=== PATIENT | male | born 1995 | race Caucasian/White ===

== ENCOUNTER → 2018-12-10 17:10 | Outpatient (CLI) | payer OTHER, SELFPAY ==
[2018-12-10 16:57] VITALS: BMI 26.3
[2018-12-11 01:10] LABS: Absolute Lymphocyte Count 1.85 X10^3/uL (0.83-4.51); Absolute Neutrophil Count 7.5 X10^3/uL (2.0-7.7); Basophil# 0.04 X10^3/uL; Basophil% 0.4 % (0-1); Eosinophil# 0.07 X10^3/uL; Eosinophils% 0.7 % (0-5); Hematocrit 45.6 % (40-54); Hemoglobin 15.4 g/dL (13.0-16.5); Lymphocyte # 1.85 X10^3/ul (4.0); Lymphocyte % 18.4 % (19-41); Mean Corp Hgb Conc 33.8 g/dL (32-36); Mean Corpuscular Hgb 30.6 pg (27.0-32.0); Mean Corpuscular Volume 90.7 fL (80-94); Mean Platelet Vol. 11.8 fl (6.2-12.0); Monocyte# 0.63 X10^3/uL; Monocyte% 6.3 % (0-10); NRBC Flagged by Analyzer 0 % (0-5); Neutrophil # 7.46 X10^3/uL (2.7-7.7); Neutrophil % 74.1 % (47-70); Platelet Count 180 K/mm3 (150-450); RBC Distribution Width CV 12.2 % (11.6-14.6); RBC Distribution Width SD 40.6 fl (35.1-43.9); Red Blood Count 5.03 M/mm3 (4.6-6.2); White Blood Count 10.1 K/mm3 (4.4-11.0)
[2018-12-11 01:29] LABS: ALB/GLOB Ratio 1.2 RATIO (0.9-2.4); AST(SGOT) 14 U/L (15-37); Alanine Aminotransfer ALT/SGPT 22 U/L (16-61); Albumin, Serum 4.5 g/dL (3.2-5.0); Alkaline Phosphatase 120 U/L (45-117); Anion Gap 5 (5-15); BUN 15 mg/dL (7-18); BUN/Creat Ratio 13.2 RATIO (10-20); Calcium,Total 9.3 mg/dL (8.5-10.1); Chloride 105 mmol/L (98-107); Cholesterol 192 mg/dL (200); Creatinine, Serum 1.14 mg/dL (0.70-1.30); EST Glomerular Filtration Rate 85 mL/min (>60); Est Glom Filt Rate - Afr Amer 103 mL/min (>60); Globulin 3.7 g/dL (2.2-4.2); Glucose 134 mg/dL (74-106); High Density Lipoprotein 61 mg/dL; Potassium 4.1 mmol/L (3.5-5.1); Protein, Total 8.2 g/dL (6.4-8.2); Sodium Level 137 mmol/L (136-145); Triglycerides 175 mg/dL; Very Low Density Lipoprotein 35 mg/dL (5-40)
== END ==
PROVIDERS: Referring Provider Nurse Practitioner; Visit Provider Nurse Practitioner
DX: Z00.00 Encounter for general adult medical examination without abnormal findings (principal)
CPT/HCPCS: 80053; 80061; 85025

== ENCOUNTER → 2019-12-11 21:38 | Outpatient (CLI) | payer OTHER, SELFPAY ==
[2019-12-10 15:44] VITALS: BMI 27.1
[2019-12-11 21:46] LABS: Absolute Lymphocyte Count 2.31 X10^3/uL (0.83-4.51); Basophil# 0.03 X10^3/uL; Basophil% 0.4 % (0-1); Eosinophil# 0.24 X10^3/uL; Eosinophils% 2.9 % (0-5); Hematocrit 43.2 % (40-54); Hemoglobin 14.6 g/dL (13.0-16.5); Lymphocyte # 2.31 X10^3/ul (4.0); Lymphocyte % 27.9 % (19-41); Mean Corp Hgb Conc 33.8 g/dL (32-36); Mean Corpuscular Hgb 30.7 pg (27.0-32.0); Mean Corpuscular Volume 90.8 fL (80-94); Mean Platelet Vol. 11.5 fl (6.2-12.0); Monocyte# 0.65 X10^3/uL; Monocyte% 7.9 % (0-10); NRBC Flagged by Analyzer 0 % (0-5); Neutrophil # 5.03 X10^3/uL (2.7-7.7); Neutrophil % 60.7 % (47-70); Platelet Count 188 K/mm3 (150-450); RBC Distribution Width CV 12.6 % (11.6-14.6); RBC Distribution Width SD 41.6 fl (35.1-43.9); Red Blood Count 4.76 M/mm3 (4.6-6.2); White Blood Count 8.3 K/mm3 (4.4-11.0)
[2019-12-11 23:08] LABS: ALB/GLOB Ratio 1.3 RATIO (0.9-2.4); AST(SGOT) 22 U/L (15-37); Alanine Aminotransfer ALT/SGPT 32 U/L (16-61); Albumin, Serum 4.5 g/dL (3.2-5.0); Alkaline Phosphatase 95 U/L (45-117); Anion Gap 6 (5-15); BUN 16 mg/dL (7-18); BUN/Creat Ratio 15.5 RATIO (10-20); Calcium,Total 9.2 mg/dL (8.5-10.1); Chloride 107 mmol/L (98-107); Cholesterol 193 mg/dL (200); Creatinine, Serum 1.03 mg/dL (0.70-1.30); EST Glomerular Filtration Rate 95 mL/min (>60); Est Glom Filt Rate - Afr Amer 115 mL/min (>60); Globulin 3.5 g/dL (2.2-4.2); Glucose 94 mg/dL (74-106); High Density Lipoprotein 68 mg/dL; Potassium 4.2 mmol/L (3.5-5.1); Sodium Level 139 mmol/L (136-145); Triglycerides 60 mg/dL; Very Low Density Lipoprotein 12 mg/dL (5-40)
== END ==
LOC: OLS.AHF 21:39 → LABSPEC 12-14 10:24
PROVIDERS: PCP Nurse Practitioner; Visit Provider Nurse Practitioner
DX: Z00.00 Encounter for general adult medical examination without abnormal findings (principal)
CPT/HCPCS: 80053; 80061; 85025

== ENCOUNTER → 2020-12-09 21:26 | Outpatient (CLI) | payer OTHER, SELFPAY ==
[2020-12-09 22:06] LABS: ALB/GLOB Ratio 1.3 RATIO (0.9-2.4); AST(SGOT) 16 U/L (15-37); Alanine Aminotransfer ALT/SGPT 31 U/L (16-61); Albumin, Serum 4.6 g/dL (3.2-5.0); Alkaline Phosphatase 86 U/L (45-117); Anion Gap 6 (5-15); BUN 13 mg/dL (7-18); Calcium,Total 9.4 mg/dL (8.5-10.1); Chloride 104 mmol/L (98-107); Cholesterol 214 mg/dL (200); EST Glomerular Filtration Rate 98 mL/min (>60); Est Glom Filt Rate - Afr Amer 118 mL/min (>60); Globulin 3.5 g/dL (2.2-4.2); Glucose 95 mg/dL (74-106); High Density Lipoprotein 70 mg/dL; Potassium 4.3 mmol/L (3.5-5.1); Protein, Total 8.1 g/dL (6.4-8.2); Sodium Level 137 mmol/L (136-145); Triglycerides 87 mg/dL; Very Low Density Lipoprotein 17 mg/dL (5-40)
[2020-12-09 22:13] LABS: Absolute Lymphocyte Count 2.09 X10^3/uL (0.83-4.51); Absolute Neutrophil Count 5.9 X10^3/uL (2.0-7.7); Basophil# 0.04 X10^3/uL; Basophil% 0.5 % (0-1); Eosinophil# 0.13 X10^3/uL; Eosinophils% 1.5 % (0-5); Hematocrit 43.2 % (40-54); Hemoglobin 14.6 g/dL (13.0-16.5); Lymphocyte # 2.09 X10^3/ul (0.83-4.51); Lymphocyte % 23.9 % (19-41); Mean Corp Hgb Conc 33.8 g/dL (32-36); Mean Corpuscular Hgb 30.2 pg (27.0-32.0); Mean Corpuscular Volume 89.3 fL (80-94); Mean Platelet Vol. 11.5 fl (6.2-12.0); Monocyte# 0.63 X10^3/uL; Monocyte% 7.2 % (0-10); NRBC Flagged by Analyzer 0 % (0-5); Neutrophil # 5.85 X10^3/uL (2.7-7.7); Neutrophil % 66.7 % (47-70); Platelet Count 181 K/mm3 (150-450); RBC Distribution Width CV 12.4 % (11.6-14.6); RBC Distribution Width SD 40.9 fl (35.1-43.9); Red Blood Count 4.84 M/mm3 (4.6-6.2); White Blood Count 8.8 K/mm3 (4.4-11.0)
== END ==
PROVIDERS: PCP Nurse Practitioner; Visit Provider Nurse Practitioner
DX: Z00.00 Encounter for general adult medical examination without abnormal findings (principal)
CPT/HCPCS: 80053; 80061; 85025

== ENCOUNTER → 2022-01-11 | Outpatient (CLI) | payer OTHER, SELFPAY ==
[2022-01-11 22:15] LABS: Absolute Lymphocyte Count 2.15 X10^3/uL (0.83-4.51); Absolute Neutrophil Count 5.9 X10^3/uL (2.0-7.7); Basophil# 0.03 X10^3/uL; Basophil% 0.3 % (0-1); Eosinophil# 0.18 X10^3/uL; Hematocrit 41.4 % (40-54); Hemoglobin 14.4 g/dL (13.0-16.5); Lymphocyte # 2.15 X10^3/ul (0.83-4.51); Lymphocyte % 24.1 % (19-41); Mean Corp Hgb Conc 34.8 g/dL (32-36); Mean Corpuscular Hgb 31.8 pg (27.0-32.0); Mean Corpuscular Volume 91.4 fL (80-94); Mean Platelet Vol. 11.8 fl (6.2-12.0); Monocyte# 0.63 X10^3/uL; Monocyte% 7.1 % (0-10); NRBC Flagged by Analyzer 0 % (0-5); Neutrophil # 5.89 X10^3/uL (2.7-7.7); Neutrophil % 66.1 % (47-70); Platelet Count 185 K/mm3 (150-450); RBC Distribution Width CV 12.5 % (11.6-14.6); RBC Distribution Width SD 41.7 fl (35.1-43.9); Red Blood Count 4.53 M/mm3 (4.6-6.2); White Blood Count 8.9 K/mm3 (4.4-11.0)
[2022-01-11 22:28] LABS: ALB/GLOB Ratio 1.2 RATIO (0.9-2.4); AST(SGOT) 30 U/L (15-37); Alanine Aminotransfer ALT/SGPT 56 U/L (16-61); Albumin, Serum 4.1 g/dL (3.2-5.0); Alkaline Phosphatase 83 U/L (45-117); Anion Gap 11 (5-15); BUN 17 mg/dL (7-18); BUN/Creat Ratio 16.8 RATIO (10-20); Chloride 104 mmol/L (98-107); Cholesterol 184 mg/dL (200); Creatinine, Serum 1.01 mg/dL (0.70-1.30); EST Glomerular Filtration Rate 95 mL/min (>60); Est Glom Filt Rate - Afr Amer 115 mL/min (>60); Globulin 3.4 g/dL (2.2-4.2); Glucose 101 mg/dL (74-106); High Density Lipoprotein 49 mg/dL; Potassium 3.6 mmol/L (3.5-5.1); Protein, Total 7.5 g/dL (6.4-8.2); Sodium Level 140 mmol/L (136-145); Triglycerides 131 mg/dL; Very Low Density Lipoprotein 26 mg/dL (5-40)
== END | disposition home or self-care (01) ==
PROVIDERS: PCP Nurse Practitioner; Visit Provider Nurse Practitioner
DX: Z00.00 Encounter for general adult medical examination without abnormal findings (principal)
CPT/HCPCS: 80053; 80061; 85025